=== PATIENT | female | born 1995 | race Caucasian/White ===

== ENCOUNTER 2017-03-13 12:44 | Emergency (ER) | payer OTHER ==
[2017-03-13 13:18] VITALS: BP 98/65
--- NOTE | 2017-03-13 13:27 | UC ---
[facility] HPI - HPI Summary HPI Summary: PAIN LEFT LOWER BACK MOLAR X 3 DAYS + SWOLLEN, TENDER, DIFFICULTY CHEWING NO FEVER - History of Current Complaint Chief Complaint: UCDentalProblem Stated Complaint: DENTAL Time Seen by Provider: 03/13/17 13:20 Hx Obtained From: Patient Hx Last Menstrual Period: 02/21/17 ?: No Onset/Duration: Gradual Onset, Lasting Days - 3, Still Present Severity: Moderate Aggravating: Cold, Chewing Alleviating: OTC Meds - ADVIL - Allergies/Home Medications Allergies/Adverse Reactions: Allergies Allergy/AdvReac Type Severity Reaction Status Date / Time No Known Allergies Allergy Verified 03/13/17 13:18 PMH/Surg Hx/FS Hx/Imm Hx Previously Healthy: Yes - Surgical History Surgical History: None - Family History Known Family History: Negative: Diabetes - Social History Alcohol Use: Occasionally Substance Use Type: None Smoking Status (MU): Never Smoked Tobacco Review of Systems Constitutional: Negative Skin: Negative Eyes: Negative ENT: Dental Pain Respiratory: Negative Cardiovascular: Negative All Other Systems Reviewed And Are Negative: Yes Physical Exam Triage Information Reviewed: Yes Appearance: Well-Appearing, No Pain Distress, Well-Nourished Vital Signs: Initial Vital Signs Temp 98.2 F 03/13/17 13:07 Pulse 68 03/13/17 13:07 Resp 15 03/13/17 13:07 BP 98/65 03/13/17 13:07 Pulse Ox 98 03/13/17 13:07 Vital Signs Reviewed: Yes Eye Exam: Normal Eyes: Positive: Conjunctiva Clear ENT: Positive: Normal ENT inspection, Hearing grossly normal, Pharynx normal Dental: Positive: Percussion Tenderness @ - LEFT LOWER BACK MOLAR Neck: Positive: Supple, Nontender, No Lymphadenopathy Respiratory: Positive: Chest non-tender, Lungs clear, Normal breath sounds, No respiratory distress Cardiovascular: Positive: RRR, No Murmur, Pulses Normal Skin Exam: Normal Dental Complaint Course/Dx - Differential Dx/Diagnosis Provider Diagnoses: DENTAL PAIN Discharge - Discharge Plan Condition: Stable Disposition: HOME Prescriptions: Amoxicillin (*) [Amoxicillin 875 MG (*)] 875 mg PO BID #20 tab Patient Education Materials: Toothache (ED) Additional Instructions: FOLLOW UP WITH YOUR DENTIST YARY
== END 2017-03-13 13:53 | disposition home or self-care (01) ==
LOC: UCCORT 12:44
DX: K08.89 Other specified disorders of teeth and supporting structures (principal)
CPT/HCPCS: 99202; G0463

== ENCOUNTER 2017-05-09 18:55 | Emergency (ER) | payer OTHER ==
[2017-05-09 19:23] VITALS: BP 128/83
--- NOTE | 2017-05-09 19:54 | UC ---
[facility] General HPI - HPI Summary HPI Summary: The patient comes in today for: 1. Dysuria: Onset: 3 days ago. Palliative/provocative: Urination makes the burning worse. Quality: Burning Region: Vaginal area. Severity: 5/10 Time: Constant. Associated symptoms: She was supposed to be taking cephalexin 500 mg four times a day for 10 days starting on the . But, she still has several days worth of cephalexin to take. Discharge: None. 2. Laceration repair area. Site: Right middle and index finger laceration--volar surface. She had two curving splints initially, but she stopped wearing them over this past weekend. Repaired: 11 days ago. She started to remove sutures on her own 9 days after they laceration was repaired. Wound discharge: None. Numbness: Present. LMP: 04-13-17 * - History of Current Complaint Chief Complaint: UCGU Stated Complaint: URINARY COMPLAINT,CHECK STITCHES Time Seen by Provider: 05/09/17 19:41 Hx Obtained From: Patient - Allergy/Home Medications Allergies/Adverse Reactions: Allergies Allergy/AdvReac Type Severity Reaction Status Date / Time No Known Allergies Allergy Verified 05/09/17 19:22 Home Medications: Home Medications Acetaminophen [Tylenol] 650 mg PO PRN 05/09/17 [History] Cephalexin CAP* [Keflex CAP*] 500 mg PO QID 05/09/17 [History Confirmed 05/09/17 ] PMH/Surg Hx/FS Hx/Imm Hx Previously Healthy: Yes - Surgical History Surgical History: None - Family History Known Family History: Negative: Hypertension, Diabetes - Social History Occupation: Employed Full-time Alcohol Use: Occasionally Substance Use Type: None Smoking Status (MU): Never Smoked Tobacco Review of Systems Constitutional: Negative Skin: Negative Eyes: Negative ENT: Negative Respiratory: Negative Cardiovascular: Negative Gastrointestinal: Negative Genitourinary: Dysuria All Other Systems Reviewed And Are Negative: Yes Physical Exam Triage Information Reviewed: Yes Appearance: Well-Appearing, No Pain Distress, Well-Nourished Vital Signs: Initial Vital Signs Temp 98.4 F 05/09/17 19:17 Pulse 88 05/09/17 19:17 Resp 14 05/09/17 19:17 BP 128/83 05/09/17 19:17 Pulse Ox 100 05/09/17 19:17 Vital Signs Reviewed: Yes Eyes: Positive: Conjunctiva Clear. Negative: Discharge ENT: Positive: Hearing grossly normal. Negative: Pharyngeal erythema, Nasal congestion, Nasal drainage, TM bulging, TM dull, TM red, Tonsillar swelling, Tonsillar exudate Dental: Negative: Gross Decay/Caries @, Dental Fracture @ Neck: Positive: Supple, Nontender, No Lymphadenopathy. Negative: Nuchal Rigidity Respiratory: Positive: Chest non-tender, Lungs clear, No respiratory distress, No accessory muscle use. Negative: Crackles, Wheezing Cardiovascular: Positive: RRR, No Murmur Abdomen Description: Positive: No Organomegaly, Soft. Negative: Nontender - She had minimal tenderness to palpation of the suprabuic, Distended, Guarding Musculoskeletal: Positive: Strength Intact, ROM Intact, No Edema Neurological: Positive: Alert, Muscle Tone Normal Psychological: Positive: Age Appropriate Behavior, Consolable Skin: Negative: rashes, breakdown UC Physical Exam Vital Signs On Initial Exam: Initial Vitals Temp Pulse Resp BP Pulse Ox 98.4 F 88 14 128/83 100 05/09/17 19:17 05/09/17 19:17 05/09/17 19:17 05/09/17 19:17 05/09/17 19:17 - Genitalia Exam Female Genitourinary: Other - External exam: NO lesions (no ulcers or erythema or rashes) Speculum exam: + caking like white discharge. No blood or ulcerations. Bimanual: non-tender to bladder wall palpation, no cervical motion tenderness, No adnexal masses or tenderness. Diagnostics - Laboratory Diagnostic Studies Completed/Ordered: She sees [facility] regularly and gets regular testing through that provider. Affirm test done. Steristrips applied. Splints applied. Course/Dx - Course Course Of Treatment: Patient was told that her urine was not remarkable for a UTI which is not surprising since she is still taking cephalexin. She was told that there are multiple conditions which can cause dysuria and suggested a pelvic exam for a more thorough evaluation. She agreed. Suggested also cleaning of her wound so that steristrips may be applied. - Differential Dx - Multi-Symptom Provider Diagnoses: Laceration of the index and middle fingers, right hand, with some sutures prematurely removed by patient, early dehiscense. Joi vaginitis Discharge - Discharge Plan Condition: Stable Disposition: HOME Patient Education Materials: Wound Dehiscence (ED), Steristrips (ED), Vulvovaginal Candidiasis (ED) Referrals: Forest Petersen MD [Primary Care Provider] - 1 Week (Please see your primary care provider in about a week to have your sutures removed or us. Finish your antibiotic (cephalexin) at 1000 mg twice a day. Take the fluconazole 150 mg one week from today (assuming you have finished the cephalexin). )
[2017-05-09] MEDS ORDERED: Fluconazole 100 MG TAB* TAB PO ONE (20:29)
== END 2017-05-09 20:51 | disposition home or self-care (01) ==
LOC: UCCORT 18:55
DX: T81.30XA Disruption of wound, unspecified, initial encounter (principal); Y69 Unspecified misadventure during surgical and medical care; Y92.9 Unspecified place or not applicable; B37.3 Candidiasis of vulva and vagina
CPT/HCPCS: 81003; 87086; 87480; 87510; 99214; A9270-GY; G0463